=== PATIENT | male | born 1975 | race Caucasian/White ===

== ENCOUNTER 2022-09-14 06:24 | Day surgery (SDC) | payer OTHER ==
[2022-09-04 14:23] VITALS: BMI 25.0
[2022-09-14 07:12] VITALS: RESP 19
[2022-09-14] MEDS ORDERED: BUPIVACAINE HCL/EPINEPHRINE/PF 30 ML VIAL IJ ONE (07:33)
[2022-09-14] MEDS ORDERED: MIDAZOLAM HCL 2 MG/2 ML SINGLE DOSE VIAL ONE ×2 (08:40→09:35)
[2022-09-14] MEDS ORDERED: ROPIVACAINE HCL 0.5% 30ML VIAL ONE (08:40)
[2022-09-14] MEDS ORDERED: DEXAMETHASONE SOD PHOSPHATE/PF 10 MG/ML SDV ONE (08:40)
[2022-09-14] MEDS ORDERED: PROPOFOL 40 ML ONE (09:27)
[2022-09-14] MEDS ORDERED: SUCCINYLCHOLINE CHLORIDE 200 MG/10 ML SYRINGE ONE (09:27)
[2022-09-14] MEDS ORDERED: ceFAZolin SODIUM 1 GM VIAL ONE (09:28)
[2022-09-14] MEDS ORDERED: DEXAMETHASONE SOD PHOSPHATE 4 MG/1 ML VIAL ONE (09:28)
[2022-09-14] MEDS ORDERED: ONDANSETRON 4 MG/2 ML VIAL ONE (09:28)
[2022-09-14] MEDS ORDERED: PROPOFOL 20 ML ONE ×2 (10:37→11:04)
[2022-09-14] MEDS ORDERED: oxyCODONE HCL 5 MG TABLET PO PRN ×4 (11:33)
[2022-09-14] MEDS ORDERED: ONDANSETRON 4 MG/2 ML VIAL IVPUSH PRN (11:33)
[2022-09-14] MEDS ORDERED: PROMETHAZINE HCL 25 MG/1 ML VIAL IVPB PRN (11:33)
[2022-09-14] MEDS ORDERED: ACETAMINOPHEN INJECTION 100 ML IVPB ONE (11:39)
[2022-09-14] MEDS ORDERED: LACTATED RINGERS SOLUTION 1,000 ML IV SCH (11:45)
[2022-09-14] MEDS ORDERED: KETOROLAC TROMETHAMINE 30 MG/1 ML VIAL IVPUSH SCH (11:45)
[2022-09-14] MEDS ORDERED: ACETAMINOPHEN 1000 MG/100 ML BAG IVPB ONE (12:00)
[2022-09-14] MEDS ORDERED: FENTANYL CITRATE/PF 50 MCG/ML VIAL ONE (12:13)
[2022-09-14 12:58] VITALS: TEMP 97.6
[2022-09-14 13:02] VITALS: BP 117/65; PULSE 62
== END 2022-09-14 13:48 | disposition home or self-care (01) ==
LOC: FASU 06:24
PROVIDERS: ATTEND Orthopaedic Surgery
PROC: 0RBJ4ZZ Excision of Right Shoulder Joint, Percutaneous Endoscopic Approach (ICD-10-PCS; principal; 2022-09-14 09:42)
PROC: 0LS34ZZ Reposition Right Upper Arm Tendon, Percutaneous Endoscopic Approach (ICD-10-PCS; 2022-09-14 09:42)
DX: S46.011D Strain of muscle(s) and tendon(s) of the rotator cuff of right shoulder, subsequent encounter (principal); M75.21 Bicipital tendinitis, right shoulder; M75.51 Bursitis of right shoulder; M65.811 Other synovitis and tenosynovitis, right shoulder; S43.431D Superior glenoid labrum lesion of right shoulder, subsequent encounter; M75.02 Adhesive capsulitis of left shoulder; X58.XXXD Exposure to other specified factors, subsequent encounter
CPT/HCPCS: 88304-TC; 94760; C1713